=== PATIENT | female | born 1930 | race Two or more races ===

== ENCOUNTER 2016-07-20 12:57 | Inpatient (IN) | payer MEDICARE ==
--- NOTE | 2016-07-20 14:03 | RAD ---
INDICATION: Altered mental status. COMPARISON: Comparison is made with a prior CT of the brain from January 06, 2013. TECHNIQUE: Contiguous axial sections of the brain were obtained from the skull base to the vertex without contrast. FINDINGS: The ventricles, cisterns and sulci are enlarged consistent with age-related atrophy. No significant focal abnormality or mass effect is seen. There is no evidence for hemorrhage. No significant focal osseous abnormality is seen. The visualized portion of the paranasal sinuses and mastoid air cells appear clear. IMPRESSION: NO EVIDENCE FOR GROSS ACUTE INFARCT, MASS EFFECT OR HEMORRHAGE.
[2016-07-20 14:22] LABS: Hematocrit 40 % (35-47); Hemoglobin 13.1 g/dl (12.0-16.0); Mean Corpuscular HGB Conc 33 g/dl (31-36); Mean Corpuscular Hemoglobin 28 pg (27-31); Mean Corpuscular Volume 86 fL (80-97); Mean Platelet Volume 9 um3 (7.4-10.4); Red Blood Count 4.69 10^6/ul (4.0-5.4); Red Cell Distribution Width 15 % (10.5-15)
[2016-07-20 14:36] LABS: ALT 9 U/L (7-52); AST 21 U/L (13-39); Albumin 3.8 g/dL (3.2-5.2); Alkaline Phosphatase 48 U/L (34-104); Anion Gap 7 mmol/L (2-11); BUN/Creatinine Ratio 14.7 (8-20); Blood Urea Nitrogen 21 mg/dL (6-24); CO2 Carbon Dioxide 27 mmol/L (22-32); Calcium 9.5 mg/dL (8.6-10.3); Chloride 105 mmol/L (101-111); Creatine Kinase 78 U/L (10-223); EGFR African American 44.9 (>60); EGFR Non-African American 34.9 (>60); Globulin 3.9 g/dL (2-4); Potassium 3.8 mmol/L (3.5-5.0); Sodium 139 mmol/L (133-145); Total Protein 7.7 g/dL (6.4-8.9)
--- NOTE | 2016-07-20 14:45 | RAD ---
INDICATION: Altered mental status COMPARISON: Chest x-ray dated May 29, 2014 TECHNIQUE: Single AP portable view of the chest was obtained. FINDINGS: Image quality is compromised due to the relative inferiority of a portable chest x-ray. New since the previous chest x-ray is a 2.9 cm faculty i on call medical assistant overlying the midline lower thoracic spine. The heart and mediastinum exhibit normal size and contour. The lungs are grossly clear. There is no evidence of a large pleural effusion. Visualized bones are normal for the patient's age. IMPRESSION: 1. No radiographic evidence for acute cardiopulmonary abnormality on this portable chest x-ray. 2. There has been interval appearance of a faculty i on call medical assistant overlying the midline lower thoracic spine that is incompletely characterized on this single AP view chest x-ray. Please correlate to physical examination and the patient's surgical history.
[2016-07-20] MEDS ORDERED: Aspirin Low Dose CHEW TAB* 81 MG PO ONE ×2 (14:49→16:36)
[2016-07-20 14:57] LABS: Troponin I 0.09 ng/mL (<0.04)
[2016-07-20 14:58] LABS: Urine Bacteria Absent (Absent); Urine Bilirubin Negative (Negative); Urine Glucose Negative (Negative); Urine Nitrite Negative (Negative)
[2016-07-20 14:58] LABS: Glucose 35 mg/dL (70-100)
[2016-07-20] MEDS ORDERED: Dextrose 50% Syringe 50 ML* 25 GM/50 ML SYRINGE IV PUSH ONE (14:59)
[2016-07-20 15:02] LABS: Acetaminophen < 15 mcg/mL; Alcohol < 10 mg/dL (<10); Salicylate < 2.50 mg/dL (<30)
[2016-07-20] MEDS ORDERED: Haloperidol INJ IV/IM* 5 MG/ML AMP IM ONE (15:04)
[2016-07-20 15:11] LABS: TSH (Thyroid Stimulating Horm) 2.94 mcIU/mL (0.34-5.60)
[2016-07-20] MEDS ORDERED: LORazepam INJ* 2 MG/ML 1 ML VIAL ONE (15:18)
[2016-07-20] MEDS ORDERED: LORazepam INJ* 2 MG/ML 1 ML VIAL IV ONE (15:18)
[2016-07-20 15:36] LABS: Benzodiazepine Urine Screen None Detected (None Detect)
[2016-07-20] MEDS ORDERED: traMADol TAB* 50 MG PO PRN (15:41)
[2016-07-20] MEDS ORDERED: Dextrose 50% Syringe 50 ML* 25 GM/50 ML SYRINGE IV PUSH PRN (15:49)
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
[2016-07-20] MEDS ORDERED: Haloperidol TAB* 0.5 MG PO PRN (16:04)
[2016-07-20] MEDS ORDERED: Haloperidol INJ IV/IM* 5 MG/ML AMP IM PRN (16:05)
--- NOTE | 2016-07-20 16:08 | ADMNOTE ---
Subjective Date of Service: 07/20/16 Interval History: Addendum to earlier note. Family History: Findings - unremarkable Social History: Findings - No alcohol or tobacco uses. She lives with her son Maximino who is her SDM. Past Medical History: Findings - DM, HTN, CKD, OA, L knee surgery, diabetic retinopathy. Review of Systems - Measurements Intake and Output: Intake and Output Last 24 Hours 07/18/16 07/19/16 07/20/16 07/21/16 06:59 06:59 06:59 06:59 Weight 210 lb - Review of Systems General Comments: ROS not obtainable due to patient's confusion. Objective Active Medications: Cholecalciferol (Vitamin D Tab*) 1,000 units PO DAILY LYDIA Dextrose (D50w Syringe 50 Ml*) 12.5 gm IV PUSH .FOR FS < 60 - SS PRN PRN Reason: FS < 60 Heparin Sodium (Porcine) (Heparin Vial(*)) 5,000 units SUBCUT Q8HR LYDIA Insulin Human Lispro (Humalog*) 0 units SUBCUT ACHS LYDIA PRN Reason: Protocol Omeprazole (Prilosec Cap*) 20 mg PO DAILY LYDIA Oxybutynin Chloride (Ditropan Tab*) 5 mg PO BID LYDIA Sertraline HCl (Zoloft*) 25 mg PO DAILY LYDIA Tramadol HCl (Ultram*) 25 mg PO Q6HR PRN PRN Reason: PAIN Vital Signs 07/20/16 07/20/16 07/20/16 13:13 13:16 13:18 Temperature 98.2 F Pulse Rate 83 84 Respiratory 16 Rate Blood Pressure 132/71 132/71 (mmHg) O2 Sat by Pulse 94 93 Oximetry 07/20/16 07/20/16 07/20/16 13:31 13:38 14:15 Temperature Pulse Rate 82 88 Respiratory Rate Blood Pressure 112/72 152/59 (mmHg) O2 Sat by Pulse 91 94 Oximetry 07/20/16 07/20/16 07/20/16 14:18 14:30 14:45 Temperature Pulse Rate 87 81 Respiratory Rate Blood Pressure 185/56 93/74 (mmHg) O2 Sat by Pulse 90 92 Oximetry 07/20/16 07/20/16 07/20/16 15:00 15:02 15:15 Temperature Pulse Rate 79 Respiratory 21 22 Rate Blood Pressure 103/85 (mmHg) O2 Sat by Pulse 94 Oximetry 07/20/16 15:24 Temperature Pulse Rate Respiratory 16 Rate Blood Pressure (mmHg) O2 Sat by Pulse Oximetry Oxygen Devices in Use Now: Nasal Cannula Appearance: Alert, supine on ED stretcher in 4 point leather restraints. Otherwise looks comfortabe, seems cooperative. Eyes: No Scleral Icterus Ears/Nose/Mouth/Throat: Clear Oropharnyx Neck: NL Appearance and Movements; NL JVP, No Thyroid Enlargement, Masses Respiratory: Symmetrical Chest Expansion and Respiratory Effort, Clear to Auscultation, Clear to Percussion Cardiovascular: NL Sounds; No Murmurs; No JVD, RRR, No Edema, - Extremities: No Edema, No Clubbing, Cyanosis, - Skin: No Rash or Ulcers, No Nodules or Sclerosis, - Neurological: NL Sensation - CHITIMACHA. No tremor. Sociable. Result Diagrams: 07/20/16 14:10 07/20/16 14:10 Assess/Plan/Problems-Billing Assessment: - Patient Problems (1) Agitation Current Visit: Yes Status: Acute Code(s): R45.1 - RESTLESSNESS AND AGITATION SNOMED Code(s): 29462973 Comment: Possibly related to hypoglycemia, or her physical exertions could have driven down her blood glucose. Serotonin syndrom also possible, or delirium or other cause. Lispro by lower SS, reduce sertraline to 25 mg daily. PRN haloperidol PO & IM. (2) Diabetes Current Visit: Yes Status: Acute Code(s): E11.9 - TYPE 2 DIABETES MELLITUS WITHOUT COMPLICATIONS SNOMED Code(s): 54265372 Comment: Lispro by lower SS. (3) LBBB (left bundle branch block) Current Visit: Yes Status: Acute Code(s): I44.7 - LEFT BUNDLE-BRANCH BLOCK, UNSPECIFIED SNOMED Code(s): 95840418 Comment: Repeat troponin. Echo. (4) CKD (chronic kidney disease) Current Visit: Yes Status: Acute Code(s): N18.9 - CHRONIC KIDNEY DISEASE, UNSPECIFIED SNOMED Code(s): 294153204 Comment: Stable. Creatinine 1.43 07/20/16.
[2016-07-20] MEDS ORDERED: Aspirin EC Low Dose* 81 MG TAB.EC ONE (16:33)
[2016-07-20] MEDS ORDERED: Aspirin Low Dose CHEW TAB* 81 MG PO SCH (17:00)
[2016-07-20] MEDS: Insulin LISPRO* 1 UNITS UNIT SUBCUT SCH ×2 (18:02→22:12)
[2016-07-20] MEDS: Losartan TAB* 25 MG PO SCH (18:50)
[2016-07-20] MEDS: oxyCODONE/Acetamin 5/325 MG* TAB PO SCH (22:11)
[2016-07-20] MEDS: Oxybutynin TAB* 5 MG PO SCH (22:11)
[2016-07-20] MEDS: Heparin VIAL(*) 5000 UNITS/ML VIAL (FIVE THOUSAND) SUBCUT SCH (22:12)
[2016-07-21] MEDS: Heparin VIAL(*) 5000 UNITS/ML VIAL (FIVE THOUSAND) SUBCUT SCH ×3 (05:17→22:15)
[2016-07-21] MEDS: Cholecalciferol TAB* 1000 UNITS PO SCH (09:12)
[2016-07-21] MEDS: Omeprazole CAP* 20 MG PO SCH (09:12)
[2016-07-21] MEDS: Sertraline* 25 MG TAB PO SCH ×2 (09:12→09:18)
[2016-07-21] MEDS: Losartan TAB* 25 MG PO SCH (09:12)
[2016-07-21] MEDS: oxyCODONE/Acetamin 5/325 MG* TAB PO SCH ×4 (09:12→21:49)
[2016-07-21] MEDS: Oxybutynin TAB* 5 MG PO SCH ×2 (09:12→22:40)
[2016-07-21] MEDS: Aspirin Low Dose CHEW TAB* 81 MG PO SCH (09:12)
[2016-07-21] MEDS: Insulin LISPRO* 1 UNITS UNIT SUBCUT SCH ×4 (09:17→22:15)
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
--- NOTE | 2016-07-21 16:32 | ECHO ---
Patient: SAGE ARIAS [facility] Rec#: [id number] : 1930 Date: 07/21/2016 Age: 85y Height: 165.1 cm / 65.0 in Weight: 95.25 kg / 209.9 lbs Sex: F BSA: 2.02 Room#: 437 Admit Date#: 07/20/2016 Referring: Corbin Calderon MD Reading: Maria Elena Solares MD Helicopter Engineer: Mayuri Dominguez RN RDCS CC: Kylie Cheney MD Transthoracic Echocardiogram Indication: ACS, LBBB BP: 140/67 HR: 71 Rhythm: NSR with PACs Findings History: HTN, DM, CKD, OA, former smoker Technical Comments: The study quality is fair. The study is technically limited due to poor parasternal windows. The study is technically limited due to patient body habitus. The study is technically limited due to the patient's smoking history. Completed at 1120. Left Ventricle: The left ventricular chamber size is normal. Global left ventricular wall motion and contractility are within normal limits. There is normal left ventricular systolic function. The estimated ejection fraction is 55-60%. There is a left ventricular septal wall motion abnormality observed, possibly due to the presence of a left bundle branch block. There is no consistent Doppler evidence of clinically significant diastolic dysfunction. Left Atrium: The left atrium is mild to moderately dilated. Right Ventricle: The right ventricular chamber size and systolic function are within normal limits. Right Atrium: The right atrium is mild to moderately dilated. Aortic Valve: The aortic valve leaflets are mildly thickened. There is mild aortic regurgitation. There is no evidence of aortic stenosis. Mitral Valve: Mild mitral annular calcification present. The mitral valve leaflets are mildly thickened. There is mild mitral regurgitation. There is no evidence of mitral stenosis. Tricuspid Valve: The tricuspid valve leaflets are normal. There is trace to mild tricuspid regurgitation. There is evidence of mild to moderate pulmonary hypertension. Pulmonic Valve: The pulmonic valve structure is not well visualized. There is no evidence of pulmonic regurgitation. There is no pulmonic stenosis. Pericardium: There is no significant pericardial effusion. A pericardial fat pad is visualized. Aorta: There is no dilatation of the ascending aorta. There is no dilatation of the aortic arch. The aortic root is normal in size. Pulmonary Artery: The main pulmonary artery is not well visualized. Venous: The venous system is not well visualized. The inferior vena cava is not visualized. Conclusions Global left ventricular wall motion and contractility are within normal limits. There is normal left ventricular systolic function. The estimated ejection fraction is 55-60%. The right ventricular chamber size and systolic function are within normal limits. The left atrium is mild to moderately dilated. The right atrium is mild to moderately dilated. There is mild aortic regurgitation. Mild mitral annular calcification present. There is mild mitral regurgitation. There is trace to mild tricuspid regurgitation. No prior echo to compare. Measurements Name Value Normal Range RAd ISD 4CH 5.8 cm (3.4 - 4.9) RA (A4C)W 4.5 cm (2.9 - 4.6) IVSd (2D) 1 cm (0.6 - 1) LVPWd (2D) 1 cm (0.6 - 1) LVIDd (2D) 4.2 cm (3.6 - 5.4) Aortic Annulus 2 cm (1.4 - 2.6) Ao root diameter (2D) 3 cm (2.1 - 3.5) Ascending Ao 2.9 cm (2.1 - 3.4) Aortic arch 2.3 cm (1.8 - 3.4) LA dimension (AP) 2D 4 cm (2.3 - 3.8) LAd ISD 4CH 6.2 cm (2.9 - 5.3) LA ISD 4CH W 4.2 cm (2.5 - 4.5) Name Value Normal Range LA ESV SP 4CH (A/L) 102 ml - LA ESV SP 2CH (A/L) 92 ml - LA ESV BP (A/L) 101 ml - LA ESV BP (A/L) index 50 ml/m2 - LA ESV SP 4CH (MOD) 97 ml - LA ESV SP 2CH (MOD) 88 ml - Name Value Normal Range MV E-wave Vmax 1.1 m/sec - MV deceleration time 251 msec - MV A-wave Vmax 0.71 m/sec - MV E:A ratio 1.5 ratio - LV septal e' Vmax 0.07 m/sec - LV lateral e' Vmax 0.1 m/sec - LV E:e' septal ratio 15.7 ratio - LV E:e' lateral ratio 11 ratio - Name Value Normal Range AV Vmax 1.6 m/sec - LVOT Vmax 1.4 m/sec - RAEGAN Vmax 0.7 m/sec - Name Value Normal Range TR Vmax 3 m/sec - TR peak gradient 36 mmHg - RAP 8 mmHg - RVSP 44 mmHg - Name Value Normal Range PV Vmax 1 m/sec -
--- NOTE | 2016-07-21 16:40 | CONSULT ---
Identification - Patient Identification Reason for Psychiatric Consultation: Other - Consult to determine capacity. -: Patient is a 85 year old, F admitted on 07/20/16. - MHU Identification Employment Status: Retired Hx Psychiatric Hospitalization: No History - Objective HPI: 85 y.o. white, diabetic female brought in yesterday by her son due to agitated behavior secondary to hypoglycemia. Blood glucose issues are now resolved but primary team is questioning the patient's ability to make informed medical decisions, specifically around the issue of the need for long-term placement. As per attending physician, Dr. Chidi Richardson, the patient has been living in her own home with her son and his girlfriend. The son alleges that she has been sending money to some sort of [employer] in [place] and mismanaging her funds at home. There is an indication that her PCP has opined that she is unsafe to continue living at home, however, I'm unsure what the source of this information is. The patient does have some bruising indicative of postural instability and recent falls. On exam she is cooperative but extremely hard of hearing. She reports that her son and his girlfriend are desirous to take over her estate for themselves and she feels completely safe returning home, although she does admit they are helpful in making her meals and laying out her medications. She believes the son is not acting in her best interest by recommending SNF placement and she refuses consent for correction care. Lab Results: Laboratory Tests 07/20/16 07/20/16 07/20/16 15:42 17:00 17:57 POC Glucose (mg/dL) 229 H 134 H Troponin I 0.08 H* 07/20/16 07/21/16 07/21/16 21:52 08:24 11:52 POC Glucose (mg/dL) 196 H 93 150 H Troponin I Exam Appearance: Healthy Appearing Hygiene: Normal Grooming: Fairly Well Kept Psychomotor Activities: Normal Exhibits Abnormal Movement: No Attitude and Relatedness: Cooperative Eye Contact: Good - Speech Quality: Unpressured Latencies: Normal Quantity: Appropriate Patient's Decription of Mood: "Good" Observed Affect: Fair Affect Consistent with: Euthymia Patient's Thought Process: Coherent Thought Content: Yes Paranoid Ideation - Towards her son and his girlfriend., No Passive Wish, No Suicidal Planning, No Homicidal Ideation Experiencing Hallucinations: No, Sensorium is Clear Type of Hallucinations: Visual: No, Auditory: No, Command: No Level of Consciousness: Alert Orientation: Yes Intact, Yes Orientated to Time, Yes Orientated to Place, Yes Orientated to Person Impulse Control: Intact Insight and Judgement: Fair - MMSE Score: 25/30 Impression - Impression Clinical Impression: Psychiatry is asked to evaluate capacity in this 85 y.o. white female with diabetes presenting with a now-resolved hypoglycemic event. The patient answers questions about what the primary team is recommending, including the alternatives and risks, in a satisfactory fashion. Furthermore, she scores 25/ 30 on an MMSE, which registers in the "Normal Cognition" range. My opinion is that she currently does have capacity to make informed medical decisions. Merits Inpatient Hospitalization: No Plan - Treatment Plan Treatment Plan: Patient's situation should be re-evaluated by primary team. If there is a source of collateral information other than the patient's son, then that contact should be made. Right now I don't believe the hospital has the legal standing to provide treatment, including SNF placement, over her objection. Please contact this clinician for any questions or if any changes occur that would affect capacity, such as an acute reduction in her cognition. Medications: Current Medications Aspirin (Aspirin Low Dose Tab*) 81 mg PO DAILY [facility] Last Admin: 07/21/16 09:12 Dose: 81 mg Cholecalciferol (Vitamin D Tab*) 1,000 units PO DAILY [facility] Last Admin: 07/21/16 09:12 Dose: 1,000 units Dextrose (D50w Syringe 50 Ml*) 12.5 gm IV PUSH .FOR FS < 60 - SS PRN PRN Reason: FS < 60 Haloperidol (Haldol Tab*) 0.5 mg PO Q4H PRN PRN Reason: AGITATION Haloperidol Lactate (Haldol Inj Iv/Im*) 1 mg IM Q3H PRN PRN Reason: AGITATION - SEVERE Heparin Sodium (Porcine) (Heparin Vial(*)) 5,000 units SUBCUT Q8HR [facility] Last Admin: 07/21/16 14:38 Dose: 5,000 units Insulin Human Lispro (Humalog*) 0 units SUBCUT ACHS [facility] PRN Reason: Protocol Last Admin: 07/21/16 12:39 Dose: 1 units Losartan Potassium (Cozaar Tab*) 25 mg PO DAILY [facility] Last Admin: 07/21/16 09:12 Dose: 25 mg Omeprazole (Prilosec Cap*) 20 mg PO DAILY [facility] Last Admin: 07/21/16 09:12 Dose: 20 mg Oxybutynin Chloride (Ditropan Tab*) 5 mg PO BID [facility] Last Admin: 07/21/16 09:12 Dose: 5 mg Oxycodone/Acetaminophen (Percocet 5/325 Tab*) 1 tab PO TID [facility] Last Admin: 07/21/16 14:40 Dose: Not Given Sertraline HCl (Zoloft*) 25 mg PO DAILY [facility] Last Admin: 07/21/16 09:18 Dose: Not Given Tramadol HCl (Ultram*) 25 mg PO Q6HR PRN PRN Reason: PAIN
[2016-07-21] MEDS ORDERED: Losartan TAB* 25 MG PO ONE (16:58)
[2016-07-21 19:41] VITALS: BP 157/50
[2016-07-21] MEDS ORDERED: Haloperidol INJ IV/IM* 5 MG/ML AMP IM PRN (22:48)
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
[2016-07-22] MEDS: Heparin VIAL(*) 5000 UNITS/ML VIAL (FIVE THOUSAND) SUBCUT SCH ×2 (05:48→13:22)
[2016-07-22] MEDS: Oxybutynin TAB* 5 MG PO SCH (08:39)
[2016-07-22] MEDS: Cholecalciferol TAB* 1000 UNITS PO SCH (08:40)
[2016-07-22] MEDS: Aspirin Low Dose CHEW TAB* 81 MG PO SCH (08:40)
[2016-07-22] MEDS: Insulin LISPRO* 1 UNITS UNIT SUBCUT SCH ×2 (08:41→13:21)
[2016-07-22] MEDS: Omeprazole CAP* 20 MG PO SCH (08:48)
[2016-07-22] MEDS: oxyCODONE/Acetamin 5/325 MG* TAB PO SCH ×2 (08:48→14:03)
[2016-07-22] MEDS: Sertraline* 25 MG TAB PO SCH (08:49)
[2016-07-22] MEDS ORDERED: Losartan TAB* 25 MG PO SCH (09:00)
[2016-07-22] MEDS ORDERED: metFORMIN* 1,000 MG TAB PO ONE (13:47)
--- NOTE | 2016-07-22 13:53 | DCNOTE ---
Patient seen this afternoon. Says she feels well as she has this entire admission. No complaints. Alert and oriented x 3. On exam, RRR, s1 and s2 present, no m/g/r, lungs CTA B/L, no w/r/r Appreciate Psych eval, patient has decision making capacity. MMSE 25/30. Did well with PT. No medical need for further hospitalization. Contacted Dr. Knight' s office who are awaiting copy of reported note declaring patient unsafe at home however we have not found anything during this hospitalization to prevent the patient from returning home. Discharge home. Confirmed with Dr. Knight's office that patient is a type 2 diabetic, will switch to Metformin to try to avoid any further hypoglycemic episodes.
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
[2016-07-23 16:21] LABS: Codeine, Ur Not Detected ng/mL (Cutoff: 25); Fentanyl, Ur Not Detected ng/mL (Cutoff: 2); Hydrocodone, Ur Not Detected ng/mL (Cutoff: 25); Hydromorphone, Ur Not Detected ng/mL (Cutoff: 25); Hydromorphone3betaglucuronide Not Detected; Morphine, Ur Not Detected ng/mL (Cutoff: 25); Norfentanyl, Ur Not Detected ng/mL (Cutoff: 2); Norhydrocodone, Ur Not Detected ng/mL (Cutoff: 25); Noroxycodone, Ur Not Detected ng/mL (Cutoff: 25); Oxycodone, Ur Not Detected ng/mL (Cutoff: 25); Oxymorphone, Ur Not Detected ng/mL (Cutoff: 25); Specific Gravity 1.009; Tramadol, Ur Not Detected ng/mL (Cutoff: 25); Urine Tetrahydrocannabinol Negative ng/mL (Cutoff: 50); pH 6.4
== END 2016-07-22 17:30 | disposition home health service (06) | DRG 639 ==
LOC: ED 12:57 → MEDTELE 15:39
PROVIDERS: ADMIT Internal Medicine; ATTEND Hospitalist
DX: E11.649 Type 2 diabetes mellitus with hypoglycemia without coma (principal); I08.3 Combined rheumatic disorders of mitral, aortic and tricuspid valves; E11.22 Type 2 diabetes mellitus with diabetic chronic kidney disease; I44.7 Left bundle-branch block, unspecified; R45.1 Restlessness and agitation; I12.9 Hypertensive chronic kidney disease with stage 1 through stage 4 chronic kidney disease, or unspecified chronic kidney disease; N18.9 Chronic kidney disease, unspecified; M19.90 Unspecified osteoarthritis, unspecified site; E11.319 Type 2 diabetes mellitus with unspecified diabetic retinopathy without macular edema; R55 Syncope and collapse; R79.89 Other specified abnormal findings of blood chemistry; R29.6 Repeated falls; Z78.1 Physical restraint status; Z79.82 Long term (current) use of aspirin; Z79.84 Long term (current) use of oral hypoglycemic drugs
CPT/HCPCS: 36415; 70450; 71010; 80053; 80307; 80320; 80329; 80364; 81003; 81015; 82550; 82553; 83605; 83874; 83880; 84443; 84484; 85025; 85610; 85730; 87086; 93005; 93306; 99285; A9270-GY; G0480; J1630; J1644; J2060

== ENCOUNTER 2016-12-02 10:14 | Emergency (ER) | payer MEDICARE ==
[2016-12-02 12:10] LABS: Hematocrit 41 % (35-47); Hemoglobin 13.5 g/dl (12.0-16.0); Mean Corpuscular HGB Conc 33 g/dl (31-36); Mean Corpuscular Hemoglobin 29 pg (27-31); Mean Corpuscular Volume 88 fL (80-97); Mean Platelet Volume 9 um3 (7.4-10.4); Red Cell Distribution Width 14 % (10.5-15); White Blood Count 8.5 10^3/ul (3.5-10.8)
[2016-12-02 12:35] LABS: BUN/Creatinine Ratio 21.9 (8-20); C Reactive Protein 32.98 mg/L (< 5.00); Calcium 9.8 mg/dL (8.6-10.3); EGFR African American 50.8 (>60); EGFR Non-African American 39.5 (>60); Globulin 3.9 g/dL (2-4); Potassium 4.5 mmol/L (3.5-5.0); Total Bilirubin 0.8 mg/dL (0.2-1.0); Total Protein 7.9 g/dL (6.4-8.9)
--- NOTE | 2016-12-02 12:52 | RAD ---
INDICATION: Left hand swelling. TECHNIQUE: 4 views of the left hand were obtained. FINDINGS: There is soft tissue swelling over the dorsal aspect of the hand overlying the metacarpal bones. The bones are osteopenic. No fracture is seen. No erosive changes or periosteal reaction is noted. 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 IMPRESSION: SOFT TISSUE SWELLING.
[2016-12-02] MEDS ORDERED: Sulfamethox/Trimethoprim DS 800/160* TAB PO ONE (13:28)
--- NOTE | 2016-12-02 13:39 | ED ---
Upper Extremity Pain - HPI Summary HPI Summary: Patient presents with one week of increasing redness in her left hand that began without known injury. She has mild swelling in the hand and reduced movement in the digits. She denies fever, chills, N/T or streaking up her arm. - History of Current Complaint Chief Complaint: EDExtremityUpper Stated Complaint: SWELLING IN HAND Time Seen by Provider: 12/02/16 11:02 Hx Obtained From: Patient, Family/Sex Therapist Mechanism Of Injury: Unknown Onset/Duration: Started Weeks Ago - 1, Atraumatic, Still Present Timing: Constant Severity Initially: Mild Severity Currently: Moderate Pain Location: Hand Character: Aching Aggravating Factor(s): Movement Alleviating Factor(s): Nothing Associated Signs & Symptoms: Positive: Swelling, Redness Related History: Dominant Hand Right - Allergies/Home Medications Allergies/Adverse Reactions: Allergies Allergy/AdvReac Type Severity Reaction Status Date / Time Penicillins Allergy Unknown Verified 12/02/16 10:19 Reaction Details PMH/Surg Hx/FS Hx/Imm Hx Endocrine/Hematology History: Reports: Hx Diabetes Cardiovascular History: Reports: Hx Angina, Hx Hypertension Denies: Hx Coronary Artery Disease, Hx Hypercholesterolemia, Hx Myocardial Infarction, Hx Valvular Heart Disease Respiratory History: Denies: Hx Chronic Obstructive Pulmonary Disease (COPD) History: Reports: Other Problems/Disorders - chronic kidney insufficiency Denies: Hx Dialysis Musculoskeletal History: Reports: Hx Arthritis Denies: Hx Back Problems Sensory History: Reports: Hx Contacts or Glasses Opthamlomology History: Reports: Hx Contacts or Glasses Neurological History: Denies: Hx Dementia, Hx Seizures, Other Neuro Impairments/Disorders - patient is confused and was not able to recall her PMHx Psychiatric History: Reports: Hx Depression - Surgical History Surgery Procedure, Year, and Place: NONE PERTINENT Infectious Disease History: No Infectious Disease History: Denies: Traveled Outside the [place] in Last 30 Days - Family History Known Family History: Positive: None - Social History Occupation: Retired Lives: With Family Alcohol Use: None Substance Use Type: Reports: None Smoking Status (MU): Never Smoked Tobacco Have You Smoked in the Last Year: No Review of Systems Positive: Other - erythema with mild edema All Other Systems Reviewed And Are Negative: Yes Physical Exam Triage Information Reviewed: Yes Vital Signs On Initial Exam: Initial Vitals Temp Pulse Resp BP Pulse Ox 98.1 F 92 18 153/59 97 05/18/17 10:16 12/02/16 10:16 12/02/16 10:16 12/02/16 10:16 12/02/16 10:16 Vital Signs Reviewed: Yes Appearance: Positive: Well-Appearing, Well-Nourished, Pain Distress Skin: Positive: Warm, Skin Color Reflects Adequate Perfusion, Dry, Tender, Soft , Erythema @ - dorsum of left hand Head/Face: Positive: Normal Head/Face Inspection Eyes: Positive: EOMI, KAUR, Conjunctiva Clear ENT: Positive: Hearing grossly normal Respiratory/Lung Sounds: Positive: Breath Sounds Present Cardiovascular: Positive: RRR Musculoskeletal: Positive: Strength/ROM Intact - forms a full loose fist, Pain @ - mild TTP dorsum of left hand, Edema Left Neurological: Positive: Sensory/Motor Intact, Alert, Oriented to Person Place, Time, NV Bundle Intact Distally Psychiatric: Positive: Affect/Mood Appropriate AVPU Assessment: Alert Diagnostics - Vital Signs Vital Signs Temp Pulse Resp BP Pulse Ox 12/02/16 11:20 98.1 [facility] 18 153/59 97 12/02/16 10:16 98.1 [facility] 18 [id number] 97 - Laboratory Lab Results: Lab Results 12/02/16 12/02/16 Range/Units 12:00 12:00 WBC 8.5 (3.5-10.8) 10^3/ul RBC 4.70 (4.0-5.4) 10^6/ul Hgb 13.5 (12.0-16.0) g/dl Hct 41 (35-47) % MCV 88 (80-97) fL MCH 29 (27-31) pg MCHC 33 (31-36) g/dl RDW 14 (10.5-15) % Plt Count 131 L (150-450) 10^3/ul MPV 9 (7.4-10.4) um3 Neut % (Auto) 76.4 (38-83) % Lymph % (Auto) 15.4 L (25-47) % [place] % (Auto) 7.6 (1-9) % Eos % (Auto) 0.2 (0-6) % Baso % (Auto) 0.4 (0-2) % Absolute Neuts (auto) 6.5 (1.5-7.7) 10^3/ul Absolute Lymphs (auto) 1.3 (1.0-4.8) 10^3/ul Absolute Monos (auto) 0.6 (0-0.8) 10^3/ul Absolute Eos (auto) 0 (0-0.6) 10^3/ul Absolute Basos (auto) 0 (0-0.2) 10^3/ul Absolute Nucleated RBC 0.01 10^3/ul Nucleated RBC % 0.1 Sodium 136 (133-145) mmol/L Potassium 4.5 (3.5-5.0) mmol/L Chloride 101 (101-111) mmol/L Carbon Dioxide 27 (22-32) mmol/L Anion Gap 8 (2-11) mmol/L BUN 28 H (6-24) mg/dL Creatinine 1.28 H (0.51-0.95) mg/dL Est GFR ( Amer) 50.8 (>60) Est GFR (Non-Af Amer) 39.5 (>60) BUN/Creatinine Ratio 21.9 H (8-20) Glucose 217 H (70-100) mg/dL Calcium 9.8 (8.6-10.3) mg/dL Total Bilirubin 0.80 (0.2-1.0) mg/dL AST 13 (13-39) U/L ALT 7 (7-52) U/L Alkaline Phosphatase 50 (34-104) U/L C-Reactive Protein 32.98 H (< 5.00) mg/L Total Protein 7.9 (6.4-8.9) g/dL Albumin 4.0 (3.2-5.2) g/dL Globulin 3.9 (2-4) g/dL Albumin/Globulin Ratio 1.0 (1-3) Result Diagrams: 12/02/16 12:00 12/02/16 12:00 Lab Statement: Any lab studies that have been ordered have been reviewed, and results considered in the medical decision making process. Course/Dx - Diagnoses Differential Diagnosis/HQI/PQRI: Positive: Arthritis, Bursitis, Contusion, Fracture (Closed), Septic Arthritis, Strain, Sprain Provider Diagnoses: Cellulitis Discharge - Discharge Plan Condition: Stable Disposition: HOME Prescriptions: Sulfamethox/Trimethoprim DS* [Bactrim DS 800/160 TAB*] 1 tab PO BID #19 tab Patient Education Materials: Cellulitis (ED) Referrals: Shravan DACOSTA,Kylie Simental [Primary Care Provider] - Additional Instructions: Please take the antibiotics provided until they are completely gone. Elevate your hand above your heart and move your fingers to decrease swelling. Call your regular doctor to be seen in 2 days for a recheck to insure you are improving. Return to the emergency department if symptoms worsen.
[2016-12-02 14:03] VITALS: BP 124/82
== END 2016-12-02 14:02 | disposition home or self-care (01) ==
LOC: ED 10:14
DX: L03.90 Cellulitis, unspecified (principal); R60.0 Localized edema
CPT/HCPCS: 36415; 80053; 85025; 86140; 99282; A9270-GY